=== PATIENT | female | born 1945 | race Caucasian/White ===

== ENCOUNTER → 2017-08-08 | Outpatient (CLI) | payer OTHER ==
[~2017-08-08] VITALS: Ht 154.9 cm; Wt 77.8 kg
[~2017-08-08] MED LIST: ATEN25TA PO; ATOR40TA16 PO; BIOTCAP PO; CHLORHEXIDINE GLUCONATE 2 % 1 PACK (2 CLOTHS) TOPICAL PRN; CHOL10008 PO; DEXTROSE 5%-LACTATED RING INJ 1,000 ML IV SCH; FLUO40CA PO; INSULIN HUMAN REGULAR 1,000 UNITS/10 ML VIAL SQ PRN; LACTATED RINGER'S 1000 ML IV PRN; LIDOCAINE HCL 1% PF 5 ML SYRINGE OTHER ONE; LISI10TA PO; METF500T PO; METOPROLOL TARTRATE 25 MG TAB PO PRN; MONT10TA4 PO; MULT1TAB PO; POVIDONE IODINE 5% (ANTISEPSIS KIT) 4 APPLICATIONS EACH NARE PRN; PROPOFOL 200 MG/20 ML AMP ONE; SODIUM CHLORID 0.9% 500 ML IV PRN; VITA500T83 PO
--- NOTE | 2017-08-08 13:04 | PD.PROCEDR ---
GI Procedure PROCEDURE PERFORMED Endoscopic ultrasound INDICATION FOR PROCEDURE Duodenal nodule PROCEDURE: The procedure, risks and benefits were discussed with Ms. Powers and informed consent was obtained. Anesthesia sedated her with Diprivan. She was placed in the left lateral decubitus position. Discopathy ultrasound: The Pentax videoscope was introduced through the oropharynx and advanced to the second portion of the duodenum. FINDINGS: The pancreas appeared to be unremarkable and within normal limits from head to tail Pancreatic duct appeared to be normal Common bile duct appeared to be normal No lymphadenopathy noted The nodule in the second portion of the duodenum appeared to be a mildly hyperechoic within the third layer of the duodenal wall and well-circumscribed on very much characteristic of a lipoma No gallbladder was seen ESTIMATED BLOOD LOSS: None SPECIMENS REMOVED: None COMPLICATIONS: None IMPRESSION: Lipoma Otherwise unremarkable EUS PLAN: Follow-up with GI as needed Constantine Collins MD Aug 08, 2017 13:04
[2017-08-08 13:30] VITALS: BP 122/69; PULSE 61; RESP 16; TEMP 97.1; O2SAT 96
--- NOTE | 2017-08-08 22:46 | EKG ---
Date Performed: 08/08/2017 Time Performed: 10:31:29 PTAGE: 71 years EKG: SINUS BRADYCARDIA MODERATE VOLTAGE CRITERIA FOR LVH, CONSIDER NORMAL VARIANT NONSPECIFIC T- WAVE ABNORMALITY BORDERLINE ECG NO PREVIOUS TRACING DOCTOR: Juan Roach Interpretating Date/Time 08/08/2017 22:44:55
== END ==
LOC: HEND 09:35
PROVIDERS: ATTEND Internal Medicine Gastroenterology
DX: K31.89 Other diseases of stomach and duodenum (principal); I10 Essential (primary) hypertension; E11.9 Type 2 diabetes mellitus without complications; Z79.4 Long term (current) use of insulin; Z87.891 Personal history of nicotine dependence
CPT/HCPCS: 00731; 43259; 93005; J7120